=== PATIENT | female | born 1980 | race Caucasian/White ===

== ENCOUNTER 2016-11-15 09:38 | Emergency (ER) | payer BC ==
[2016-11-15 10:17] VITALS: BP 111/49
--- NOTE | 2016-11-15 11:41 | UC ---
General HPI - HPI Summary HPI Summary: patient awoke last night with a feeling of " cold shills inside and numness in her legs" it lasted a few seconds, she checked her HR at that time and it was 64 , which is low for her. She has a history of PCOS and anxiety. feels ok now, just here to get checked out. - History of Current Complaint Chief Complaint: UCGeneralIllness Stated Complaint: BLOOD PRESSURE CONCERNS Time Seen by Provider: 11/15/16 11:24 Hx Obtained From: Patient Onset/Duration: Sudden Onset, Lasting Minutes Timing: Constant Onset Severity: Mild Current Severity: None - Allergy/Home Medications Allergies/Adverse Reactions: Allergies Allergy/AdvReac Type Severity Reaction Status Date / Time No Known Allergies Allergy Verified 08/22/13 15:32 PMH/Surg Hx/FS Hx/Imm Hx Previously Healthy: Yes - Surgical History Surgical History: None - Family History Known Family History: Positive: Hypertension - Social History Alcohol Use: Rare Substance Use Type: None Smoking Status (MU): Never Smoked Tobacco Review of Systems Constitutional: Negative Skin: Negative Eyes: Negative ENT: Negative Respiratory: Negative Cardiovascular: Negative Gastrointestinal: Negative Genitourinary: Negative Motor: Negative Neurovascular: Negative Musculoskeletal: Negative Neurological: Negative Psychological: Anxious All Other Systems Reviewed And Are Negative: Yes Physical Exam Triage Information Reviewed: Yes Appearance: Well-Appearing, No Pain Distress, Well-Nourished, Other: - anxois Vital Signs: Initial Vital Signs Temp 98.9 F 11/15/16 10:08 Pulse 84 11/15/16 10:08 Resp 14 11/15/16 10:08 BP 111/49 11/15/16 10:08 Pulse Ox 100 11/15/16 10:08 Vital Signs Reviewed: Yes Eye Exam: Normal Eyes: Positive: Conjunctiva Clear ENT Exam: Normal ENT: Positive: Normal ENT inspection, Pharyngeal erythema, TMs normal Dental Exam: Normal Neck exam: Normal Neck: Positive: Supple, Nontender, No Lymphadenopathy Respiratory Exam: Normal Respiratory: Positive: Chest non-tender, Lungs clear, Normal breath sounds Cardiovascular Exam: Normal Cardiovascular: Positive: RRR, No Murmur, Pulses Normal Abdominal Exam: Normal Abdomen Description: Positive: Nontender, No Organomegaly, Soft Bowel Sounds: Positive: Present Musculoskeletal Exam: Normal Musculoskeletal: Positive: Strength Intact, ROM Intact, No Edema Neurological Exam: Normal Neurological: Positive: Alert, Muscle Tone Normal Psychological Exam: Normal Skin Exam: Normal Course/Dx - Course Course Of Treatment: History obtained, exam performed, medications reviewed. educated on Blood pressure and HR norms. Talket with patient about her anxiety over her health. Listened to her and advised her to take her BP once a day and follow up with her PCP in one week if she is still concerned. Repeat BP, 118/74 - Differential Dx - Multi-Symptom Provider Diagnoses: anxiety over health Discharge - Discharge Plan Condition: Stable Disposition: HOME Patient Education Materials: How to Take a Blood Pressure (ED) Additional Instructions: i recommend that you take your BP once daily for the enxt week before you visit your doctor. Normal is 100-120/60-80. At this time your Blood pressure is great 118/74. Follow up if you develop any dizzyness, lightheadedness, chest pain or Shortness of breath. I recommend increasing your fluid intake as well.
== END 2016-11-15 11:50 | disposition home or self-care (01) ==
LOC: UCCORT 09:38
DX: F41.9 Anxiety disorder, unspecified (principal); I10 Essential (primary) hypertension; E28.2 Polycystic ovarian syndrome
CPT/HCPCS: 99211; G0463

== ENCOUNTER 2017-07-04 21:43 | Emergency (ER) | payer BC ==
--- NOTE | 2017-07-04 21:50 | UC ---
Psychiatric Complaint HPI - HPI Summary HPI Summary: 36 YEAR OLD FEMALE PRESENTS WITH COMPLAINS OF SHAKING AND ANXIETY. - History Of Current Complaint Stated Complaint: ANXIETY Time Seen by Provider: 07/04/17 21:50 Hx Obtained From: Patient Hx Last Menstrual Period: 11/02/16 Onset/Duration: Sudden Onset Timing: Constant Severity Initially: Moderate Severity Currently: Moderate Character: Depressed, Fearful, Anxious Aggravating Factor(s): Recent Stress Alleviating Factor(s): Nothing Associated Signs And Symptoms: Sleep Disturbance - Allergies/Home Medications Allergies/Adverse Reactions: Allergies Allergy/AdvReac Type Severity Reaction Status Date / Time No Known Allergies Allergy Verified 07/04/17 22:02 Home Medications: Home Medications Cholecalciferol [Vitamin D] 200 unit PO DAILY 07/04/17 [History Confirmed ] PMH/Surg Hx/FS Hx/Imm Hx Previously Healthy: Yes - Surgical History Surgical History: None - Family History Known Family History: Positive: Hypertension - Social History Alcohol Use: Rare Substance Use Type: None Smoking Status (MU): Never Smoked Tobacco Review of Systems Constitutional: Fatigue Skin: Negative Eyes: Negative ENT: Negative Respiratory: Negative Cardiovascular: Negative Gastrointestinal: Negative Genitourinary: Negative Motor: Negative Neurovascular: Negative Musculoskeletal: Negative Neurological: Negative Psychological: Negative All Other Systems Reviewed And Are Negative: Yes Physical Exam Triage Information Reviewed: Yes Appearance: Ill-Appearing Vital Signs Reviewed: Yes Eye Exam: Normal ENT Exam: Normal Dental Exam: Normal Neck exam: Normal Neck: Positive: 1 Respiratory Exam: Normal Cardiovascular Exam: Normal Abdominal Exam: Normal Musculoskeletal Exam: Normal Neurological Exam: Normal Psychological Exam: Normal Skin Exam: Normal Psych Complaint Course/Dx - Differential Dx/Diagnosis Provider Diagnoses: ANXIETY Discharge - Discharge Plan Condition: Stable Disposition: HOME Patient Education Materials: Anxiety (ED), Anxiolysis in Adults (ED) Referrals: Sherley Monk NP [Primary Care Provider] -
[2017-07-04 22:03] VITALS: BP 120/67
== END 2017-07-04 22:54 | disposition home or self-care (01) ==
LOC: UCCORT 21:43
DX: F41.9 Anxiety disorder, unspecified (principal); R25.1 Tremor, unspecified; Z32.02 Encounter for pregnancy test, result negative
CPT/HCPCS: 81003; 84702; 99211; G0463